=== PATIENT | female | born 1960 | race Caucasian/White ===

== ENCOUNTER 2017-06-19 20:07 | Emergency (ER) | payer MEDICAID, OTHER ==
--- NOTE | 2017-06-19 20:36 | ERPHSYRPT ---
- History of Present Illness Time Seen by Provider: 06/19/17 20:18 Source: patient Exam Limitations: no limitations Patient Subjective Stated Complaint: pt states on friday night she fell down bleachers and hit the back of her head, rt knee, and rt elbow. Triage Nursing Assessment: pt alert and oriented, asnwers qeustions approp. pt ambulatory with steady gait noted. respirations nonlbored with lungs cta. bilat upper and lower ext strength wnl. pupils equal and reactive. Physician History: SIX DAYS AGO PT FELL DOWN 3 BLEACHERS WITH RESULTANT PAIN AND BRUISING OF THE RIGHT ARM, RIGHT ELBOW AND RIGHT KNEE WITH TENDERNESS OF THE BACK OF THE HEAD. PT ALSO C/O DIZZINESS 6 DAYS AGO ONLY AND NAUSEA FOR THE PAST 3 WEEKS. PT DENIES TINGLING/NUMBNESS, WEAKNESS, CHEST PAIN, SHORTNESS OF AIR, ABDOMINAL PAIN. Allergies/Adverse Reactions: codeine Allergy (Verified 06/19/17 20:26) Penicillins Allergy (Verified 06/19/17 20:27) sulfamethoxazole [From Bactrim] Allergy (Verified 06/19/17 20:26) trimethoprim [From Bactrim] Allergy (Verified 06/19/17 20:26) Hx Tetanus, Diphtheria Vaccination/Date Given: Yes Hx Influenza Vaccination/Date Given: No Hx Pneumococcal Vaccination/Date Given: No Immunizations Up to Date: Yes - Review of Systems Respiratory: No Dyspnea Cardiac: No Chest Pain Abdominal/Gastrointestinal: Nausea, No Abdominal Pain, No Vomiting Musculoskeletal: Other (PAIN AND BRUISING OF THE RIGHT ARM, ELBOW AND KNEE.) Neurological: Dizziness, Other (OCCIPITAL TENDERNESS SINCE FALL 6 DAYS AGO.) All Other Systems: Reviewed and Negative - Past Medical History ENT History: Other Endocrine Medical History: Diabetes Type II Musculoskeletal History: Arthritis Other Medical History: hx of detatched retina - Past Surgical History Past Surgical History: Yes Gastrointestinal: Cholecystectomy Female Surgical History: Hysterectomy, Tubal Ligation - Social History Smoking Status: Never smoker Exposure to second hand smoke: No Drug Use: none Patient Lives Alone: No - Nursing Vital Signs Nursing Vital Signs: Initial Vital Signs Temperature 97.6 F 06/19/17 20:15 Pulse Rate 87 06/19/17 20:15 Respiratory Rate 18 06/19/17 20:15 Blood Pressure 121/80 06/19/17 20:15 O2 Sat by Pulse Oximetry 99 06/19/17 20:15 Pain Scale Pain Intensity 6 - Physical Exam General Appearance: alert Eye Exam: PERRL/EOMI Ears, Nose, Throat Exam: TMs normal, pharynx normal, moist mucous membranes Neck Exam: normal inspection Respiratory Exam: lungs clear, airway intact Cardiovascular Exam: normal heart sounds Gastrointestinal/Abdomen Exam: soft, normal bowel sounds Back Exam: No vertebral tenderness Extremity Exam: other (MILD BRUISING AND TENDERNESS OF THE RIGHT KNEE, RIGHT ELBOW AND EXTENSOR ASPECT OF THE DISTAL RIGHT ARM.) Neurologic Exam: alert, cooperative, normal mood/affect, sensation nml, No motor deficits, No motor weakness Skin Exam: other (MILD TENDERNESS AT THE BASE OF THE OCCIPUT WITHOUT ERYTHEMA OR EDEMA.) SpO2 Interpretation: normal SpO2: 99 Oxygen Delivery: Room Air - Radiology Exams Right Elbow X-ray Interpretation: Interpreted by me, No Fracture Right Humerus X-ray Interpretation: Interpreted by me, No Fracture Right Knee X-ray Interpretation: Interpreted by me, No Fracture - CT Exams Head CT Interpretation: Discussed w/radiologist (NORMAL) Cervical Spine CT Interpretation: Discussed w/radiologist (C5-C6 DDD O/W NEGATIVE) Ordered Tests: Active Orders 24 hr Category Date Time Status Kevin Bandage Application -[facility] STAT Care 06/19/17 22:34 Active CERVICAL SPINE WO CONTRAST [CT] Stat Exams 06/19/17 20:56 Taken ELBOW (MINIMUM 3 VIEWS) Stat Exams 06/19/17 21:22 Taken HEAD WITHOUT CONTRAST [CT] Stat Exams 06/19/17 20:34 Taken HUMERUS Stat Exams 06/19/17 20:34 Taken KNEE (3 VIEWS) Stat Exams 06/19/17 20:34 Taken AMYLASE Stat Lab 06/19/17 20:49 Completed CBC W DIFF Stat Lab 06/19/17 20:49 Completed CMP Stat Lab 06/19/17 20:49 Completed LIPASE Stat Lab 06/19/17 20:49 Completed MAGNESIUM Stat Lab 06/19/17 20:49 Completed Lab/Rad Data: Laboratory Result Diagrams 06/19/17 20:49 06/19/17 20:49 Laboratory Results 06/19/17 06/19/17 Range/Units 20:49 20:49 WBC 7.0 (4.0-10.5) K/mm3 RBC 4.87 (4.1-5.4) M/mm3 Hgb 14.0 (12.0-16.0) gm/dl Hct 41.8 (35-47) % MCV 85.8 (78-100) fl MCH 28.7 (26-32) pg MCHC 33.5 (32-36) g/dl RDW 12.8 (11.5-14.0) % Plt Count 214 (150-450) K/mm3 MPV 10.5 H (6-9.5) fl Gran % 43.3 (36.0-66.0) % Lymphocytes % 49.5 H (24.0-44.0) % Monocytes % 5.6 (0.0-12.0) % Eosinophils % 1.3 (0.00-5.0) % Basophils % 0.3 (0.0-0.4) % Basophils # 0.02 (0-0.4) Sodium 139 (136-145) mEq/L Potassium 3.5 (3.5-5.1) mEq/L Chloride 108 H (98-107) mEq/L Carbon Dioxide 23.1 (21-32) mEq/L Anion Gap 11.8 (5-15) MEQ/L BUN 14 (9-20) mg/dL Creatinine 0.76 (0.55-1.30) mg/dl Estimated GFR > 60 ML/MIN Glucose 183 H (70-110) MG/DL Calcium 8.9 (8.5-10.1) mg/dL Magnesium 1.9 (1.8-2.4) mg/dL Total Bilirubin 0.40 (0.2-1.0) mg/dL AST 11 L (15-37) U/L ALT 18 (12-78) U/L Alkaline Phosphatase 59 (46-116) U/L Serum Total Protein 7.0 (6.4-8.2) gm/dL Albumin 3.9 (3.4-5.0) g/dL Amylase 40 (25-115) U/L Lipase 154 (73-393) U/L - Departure Time of Disposition: 22:44 Departure Disposition: Home Clinical Impression: FALL, HEAD CONTUSION, RIGHT KNEE CONTUSION, RIGHT ELBOW/ARM CONTUSION Condition: Stable Critical Care Time: No Referrals: DOCTOR,NO FAMILY [Primary Care Provider] - Instructions: Closed Head Injury (DC), Contusion (DC) Additional Instructions: FOLLOW UP WITH PRIVATE DOCTOR TOMORROW. ELEVATE RIGHT KNEE ABOVE HEART LEVEL FOR 24 HOURS. WEAR KEVIN WRAP TO RIGHT KNEE FOR THE NEXT 4 DAYS. Prescriptions: Naproxen [Naprosyn] 500 mg PO [id number] PRN #20 tablet PRN Reason: Pain
[2017-06-19 20:51] LABS: BASOPHIL % 0.3 % (0.0-0.4); Basophil (Absolute #) 0.02 (0-0.4); Eosinophil % 1.3 % (0.00-5.0); Eosinophil (Absolute #) 0.09 (0-0.5); Granulocyte Absolute (ANC) 3.03 (1.4-6.9); Granulocytes % 43.3 % (36.0-66.0); Hematocrit 41.8 % (35-47); Lymphocyte (Absolute #) 3.46 (1.0-4.6); Lymphocytes % 49.5 % (24.0-44.0); Mean Cell Volume 85.8 fl (78-100); Mean Corpuscular Hemoglobin 28.7 pg (26-32); Mean Corpuscular Hgb Concent. 33.5 g/dl (32-36); Mean Platelet Volume 10.5 fl (6-9.5); Monocyte (Absolute #) 0.39 (0.0-1.3); Monocytes % 5.6 % (0.0-12.0); Platelet Count 214 K/mm3 (150-450); Red Blood Count 4.87 M/mm3 (4.1-5.4); Red Cell Distribution Width 12.8 % (11.5-14.0)
[2017-06-19 21:15] LABS: ALBUMIN 3.9 g/dL (3.4-5.0); ALKALINE PHOSPHATASE 59 U/L (46-116); AMYLASE 40 U/L (25-115); ANION GAP 11.8 MEQ/L (5-15); BLOOD UREA NITROGEN 14 mg/dL (9-20); CHLORIDE 108 mEq/L (98-107); Calcium 8.9 mg/dL (8.5-10.1); Carbon Dioxide 23.1 mEq/L (21-32); Creatinine 1 0.76 mg/dl (0.55-1.30); EST GLOMERULAR FILTRATION RATE > 60 ML/MIN; Glucose 183 MG/DL (70-110); LIPASE 154 U/L (73-393); MAGNESIUM 1.9 mg/dL (1.8-2.4); Potassium 3.5 mEq/L (3.5-5.1); SGOT/AST 11 U/L (15-37); SGPT/ALT 18 U/L (12-78); SODIUM 139 mEq/L (136-145)
[2017-06-19 21:24] VITALS: BP 113/72; PULSE 84
[2017-06-19 22:13] VITALS: O2SAT 99
--- NOTE | 2017-06-20 08:38 | XRAY ---
Indication: Posterior head pain following fall one week ago. Multiple contiguous axial images obtained through the head without contrast. Comparison: None Normal appearing brain parenchyma, ventricles, and bony calvarium. Visualized paranasal sinuses and mastoid air cells are clear. Impression: Normal CT head without contrast exam. CT DI 59.47
--- NOTE | 2017-06-20 08:42 | XRAY ---
Indication: Neck pain following fall one week ago. Multiple contiguous axial images obtained through the cervical spine. Sagittal and coronal reformatted images obtained. Comparison: None Axial images negative for acute fracture, suspicious bony lesions, or spinal canal stenosis. Minimal C5-C6/C7-T1 degenerative endplate spurring and mild multilevel bilateral degenerative facet arthropathy. Sagittal and coronal reformatted images demonstrates normal alignment with minimal C5-C6 disc space narrowing. No acute compression fracture, subluxation, or jumped facet. Normal appearing craniocervical junction. Visualized noncontrasted soft tissues including lung apices are unremarkable. CT head reported separately. Impression: 1. Negative acute fracture/subluxation. 2. Mild degenerative changes. CT DI 110.04
--- NOTE | 2017-06-20 08:46 | XRAY ---
Indication: Pain following fall one week ago. Comparison: None 3 views of the right knee demonstrates mild/moderate tricompartmental degenerative changes greatest involving the medial compartment. Posterior fabella. No other bony, articular, or soft tissue abnormalities.
--- NOTE | 2017-06-20 08:46 | XRAY ---
Indication: Pain following fall one week ago. Comparison: None 3 views of the right elbow demonstrates tiny medial/lateral epicondyle spurring. No other bony, articular, or soft tissue abnormalities.
--- NOTE | 2017-06-20 08:48 | XRAY ---
Indication: Pain following fall. Comparison: None 2 views of the right humerus demonstrates moderate AC degenerative arthropathy and subcapital spurring. No other bony, articular, or soft tissue abnormalities. Elbow reported separately.
== END 2017-06-19 22:50 | disposition home or self-care (01) ==
LOC: ED 20:07
DX: S00.93XA Contusion of unspecified part of head, initial encounter (principal); S80.01XA Contusion of right knee, initial encounter; S50.01XA Contusion of right elbow, initial encounter; W10.8XXA Fall (on) (from) other stairs and steps, initial encounter
CPT/HCPCS: 36415; 70450; 72125; 73060; 73080; 73562; 80053; 82150; 83690; 83735; 85025; 99284

== ENCOUNTER 2017-09-07 09:00 | Emergency (ER) | payer OTHER ==
--- NOTE | 2017-09-07 09:36 | ERPHSYRPT ---
- History of Present Illness Time Seen by Provider: 09/07/17 09:17 Source: patient Exam Limitations: no limitations Physician History: Pt is c/o left sided knee pain for 2 days, denies any injury, no fall, direct or indirect trauma. She had similar problems with her right knee in the past, but denies major trauma, surgery, swelling, other issues. She is nonsmoker, denies serious medical problems except Diabetes and nonspecified arthritis. Method of Injury: unknown Occurred: days ago (2) Quality: constant Severity of Pain-Max: moderate Severity of Pain-Current: mild Lower Extremities Pain: knee: left Modifying Factors: Improves With: movement Associated Symptoms: none Allergies/Adverse Reactions: codeine Allergy (Verified 09/07/17 09:24) Penicillins Allergy (Verified 09/07/17 09:24) sulfamethoxazole [From Bactrim] Allergy (Verified 09/07/17 09:24) trimethoprim [From Bactrim] Allergy (Verified 09/07/17 09:24) Home Medications: Alogliptin Benzoate [Alogliptin] 5 mg PO DAILY 09/07/17 [History] Canagliflozin [Invokana] 300 mg PO DAILY 09/07/17 [History] Hx Tetanus, Diphtheria Vaccination/Date Given: Yes Hx Influenza Vaccination/Date Given: No Hx Pneumococcal Vaccination/Date Given: No - Review of Systems Constitutional: No Symptoms Musculoskeletal: Other (left knee pain) All Other Systems: Reviewed and Negative - Past Medical History ENT History: Other Endocrine Medical History: Diabetes Type II Musculoskeletal History: Arthritis Other Medical History: hx of detatched retina - Past Surgical History Past Surgical History: Yes Gastrointestinal: Cholecystectomy Female Surgical History: Hysterectomy, Tubal Ligation - Social History Smoking Status: Never smoker Exposure to second hand smoke: No Drug Use: none Patient Lives Alone: No - Nursing Vital Signs Nursing Vital Signs: Initial Vital Signs Temperature 97.8 F 09/07/17 09:19 Pulse Rate 89 09/07/17 09:19 Respiratory Rate 16 09/07/17 09:19 Blood Pressure 116/74 09/07/17 09:19 O2 Sat by Pulse Oximetry 99 09/07/17 09:19 Pain Scale Pain Intensity [Left Knee] 4 Pain Intensity 5 - Physical Exam General Appearance: no apparent distress Eyes, Ears, Nose, Throat Exam: normal ENT inspection Neck Exam: normal inspection, non-tender Cardiovascular/Respiratory Exam: chest non-tender, normal breath sounds, regular rate/rhythm, heart sounds normal Gastrointestinal/Abdominal Exam: non-tender Back Exam: normal inspection Knees Exam: left knee: normal inspection, normal range of motion, no evidence of injury, pain (in the fibular area, no swelling, discoloration, no effusion, laxity or other abnormal findings. Good distal pulses.) Ankle Exam: left ankle: normal inspection Neuro/Tendon Exam: normal sensation, normal motor functions Mental Status Exam: alert, oriented x 3 Skin Exam: normal color, warm, dry, No rash SpO2 Interpretation: normal Oxygen Delivery: Room Air - Course Nursing assessment & vital signs reviewed: Yes - Radiology Exams Knee X-ray Interpretation: Interpreted by me, Negative Ordered Tests: Active Orders 24 hr Category Date Time Status KNEE (3 VIEWS) Stat Exams 09/07/17 10:25 Taken - Progress Progress: unchanged Progress Note: 09/07/17 10:30 I discussed the X ray findings with this patient, instructed to rest x 2-3 days , wear VALERIE band , when walking, and follow up with her physician next week. She agreed, will return if any changes, severe pain, swelling, discoloration or numbness of the leg, foot. 09/07/17 10:33 She was given Ultram 50 mg PO Q6h PRN for pain #10 tablets. - Departure Time of Disposition: 10:32 Departure Disposition: Home Clinical Impression: Knee pain, left Qualifiers: Chronicity: acute Qualified Code(s): M25.562 - Pain in left knee Condition: Stable Critical Care Time: No Referrals: SLOANE JACKSON MOTHER TESTER [Primary Care Provider] - Additional Instructions: Rest x 2-3 days, use VALERIE bands, when walking, return if severe pain, swelling, discoloration or numbness coldness of the leg, or foot! Follow up with your physician next week!
[2017-09-07 10:07] VITALS: BP 100/82; PULSE 85; O2SAT 98
--- NOTE | 2017-09-07 19:40 | XRAY ---
Indication: Left knee pain. No known injury. Comparison: None 3 views of the left knee demonstrates mild medial degenerative joint space narrowing/spurring and 10 mm well-circumscribed ossification in the femoral notch either degenerative versus old injury. No other bony, articular, or soft tissue abnormalities.
== END 2017-09-07 10:54 | disposition home or self-care (01) ==
LOC: ED 09:00
DX: M25.562 Pain in left knee (principal)
CPT/HCPCS: 73562; 99283

== ENCOUNTER 2018-06-21 06:23 | Emergency (ER) | payer OTHER ==
[2018-06-21] MEDS ORDERED: Sodium Chloride 0.9% 1000 ML 1,000 ML IV SCH (07:15)
[2018-06-21] MEDS ORDERED: TORAdol 30 mg Injection IV ONE (07:17)
--- NOTE | 2018-06-21 07:24 | ERPHSYRPT ---
- History of Present Illness Time Seen by Provider: 06/21/18 07:10 Historian: patient Exam Limitations: clinical condition Patient Subjective Stated Complaint: pt reports right shoulder pain x 2 weeks that radiates under her right arm to the axilla region. pt states it will wake her from sleep. states the pain is sharp at times, states at this time it is dull. pt reports moving 2 weeks ago lifting heavy boxes and also getting her arm caught in her bath tub recently. pt reports hx of arthritis to the shoulder as well. Triage Nursing Assessment: pt is aox3, pupils perrl, pt appears in no distress, afebrile, resps easy and non labored, radial pulses strong and equal, abd soft non tender, pt skin pink warm dry. no obvious injury or deformity noted. pt ROM intact. pt sensation intact. cap refill < 3 seconds. Physician History: PATIENT COMPLAINS OF SHARP DULL ACHING PAIN OVER HIS LEFT SHOULDER BLADE X 2 WEEKS PERSISTENT, PAIN IS WORSE UPON INSPIRATION, RATES PAIN SCALE 7/10, DENIES COUGH, DYSPNEA, DIAPHORESIS, PALPITATIONS, AND RADIATION OF PAIN TO NECK, JAW OR ARMS. Timing/Duration: week(s) Activities at Onset: none Quality: aching, sharpness Location: back Chest Pain Radiation: no radiation Severity of Pain-Max: moderate Severity of Pain-Current: moderate Modifying Factors: Improves With: change in position ( MOTION OF LEFT ARM) Prior Chest Pain/Cardiac Workup: no prior chest pain Nitro Today/Relief: no nitro taken today Aspirin Treatment Today: no aspirin today Allergies/Adverse Reactions: codeine Allergy (Verified 09/07/17 09:24) Penicillins Allergy (Verified 09/07/17 09:24) sulfamethoxazole [From Bactrim] Allergy (Verified 09/07/17 09:24) trimethoprim [From Bactrim] Allergy (Verified 09/07/17 09:24) Home Medications: Alogliptin Benzoate [Alogliptin] 5 mg PO DAILY 09/07/17 [History] Canagliflozin [Invokana] 300 mg PO DAILY 09/07/17 [History] Hx Tetanus, Diphtheria Vaccination/Date Given: Yes Hx Influenza Vaccination/Date Given: No Hx Pneumococcal Vaccination/Date Given: No Immunizations Up to Date: Yes - Review of Systems Constitutional: No Fever, No Chills Eyes: No Symptoms Ears, Nose, & Throat: No Symptoms Respiratory: No Symptoms, No Cough, No Dyspnea Cardiac: Chest Pain, No Edema, No Syncope Abdominal/Gastrointestinal: No Symptoms, No Abdominal Pain, No Nausea, No Vomiting, No Diarrhea Genitourinary Symptoms: No Symptoms, No Dysuria Musculoskeletal: No Back Pain, No Neck Pain Skin: No Rash Neurological: No Dizziness, No Focal Weakness, No Sensory Changes Psychological: No Symptoms Endocrine: No Symptoms All Other Systems: Reviewed and Negative - Past Medical History Pertinent Past Medical History: Yes ENT History: Other Endocrine Medical History: Diabetes Type II Musculoskeletal History: Arthritis Other Medical History: hx of detatched retina - Past Surgical History Past Surgical History: Yes Gastrointestinal: Cholecystectomy Female Surgical History: Hysterectomy, Tubal Ligation - Social History Smoking Status: Never smoker Exposure to second hand smoke: No Drug Use: none Patient Lives Alone: No - Female History Hx Now: No - Nursing Vital Signs Nursing Vital Signs: Initial Vital Signs Temperature 97.1 F 06/21/18 06:50 Pulse Rate 77 06/21/18 06:50 Respiratory Rate 20 06/21/18 06:50 Blood Pressure 118/78 06/21/18 06:50 O2 Sat by Pulse Oximetry 97 06/21/18 06:50 Pain Scale Pain Intensity 6 - Physical Exam General Appearance: no apparent distress, alert Eye Exam: PERRL/EOMI, eyes nml inspection Ears, Nose, Throat Exam: normal ENT inspection, moist mucous membranes Neck Exam: normal inspection, non-tender, supple, full range of motion Respiratory Exam: normal breath sounds, chest tenderness (TENDERNESS ADJACENT TO MEDIAL BORDER OF LEFT SCAPULA), lungs clear, No respiratory distress Cardiovascular Exam: regular rate/rhythm, normal heart sounds Gastrointestinal/Abdomen Exam: soft, normal bowel sounds, No tenderness, No mass Back Exam: normal inspection, other (THERE IS NO SPINAL OR PARASPINAL THORACIC OR LUMBAR TENDERNESS), No CVA tenderness, No vertebral tenderness Extremity Exam: normal inspection, normal range of motion Neurologic Exam: alert, oriented x 3, cooperative, normal mood/affect, sensation nml, No motor deficits Skin Exam: normal color, warm, dry SpO2: 97 - Course EKG Interpreted by Me: RATE, Sinus Rhythm, NORMAL AXIS - Radiology Exams Chest X-ray Interpretation: Interpreted by me, Negative Ordered Tests: Active Orders 24 hr Category Date Time Status Scrub Wheel Operator STAT Care 06/21/18 07:16 Active EKG-ER Only STAT Care 06/21/18 07:15 Active CHEST 1 VIEW (PORTABLE) Stat Exams 06/21/18 07:16 Taken CBC W DIFF Stat Lab 06/21/18 07:40 Completed CMP Stat Lab 06/21/18 07:40 Completed D-DIMER QUANTITATION Stat Lab 06/21/18 07:40 Completed PROTIME WITH INR Stat Lab 06/21/18 07:40 Completed TROPONIN Q3H Lab 06/21/18 07:40 Completed TROPONIN Q3H Lab 06/21/18 10:30 Ordered TROPONIN Q3H Lab 06/21/18 13:30 Ordered TROPONIN Q3H Lab 06/21/18 16:30 Ordered TROPONIN Q3H Lab 06/21/18 19:30 Ordered Medication Summary Generic Name Dose Route Start Last Admin Trade Name Freq PRN Reason Stop Dose Admin Sodium Chloride 1,000 mls @ 50 mls/hr 06/21/18 07:15 06/21/18 07:42 Sodium Chloride 0.9% 1000 Ml IV 07/21/18 07:14 50 mls/hr .Q20H CHANDA Administration Discontinued Medications Generic Name Dose Route Start Last Admin Trade Name Freq PRN Reason Stop Dose Admin Ketorolac Tromethamine 30 mg 06/21/18 07:17 06/21/18 07:42 Toradol 30 Mg Injection IV 06/21/18 07:18 30 mg STAT ONE Administration Ketorolac Tromethamine Confirm 06/21/18 07:41 Toradol 30 Mg Injection Administered 06/21/18 07:42 Dose 30 mg .ROUTE .STFedBid-MED ONE Lab/Rad Data: Laboratory Result Diagrams 06/21/18 07:40 06/21/18 07:40 Laboratory Results 06/21/18 06/21/18 06/21/18 Range/Units 07:40 07:40 07:40 WBC (4.0-10.5) K/mm3 RBC (4.1-5.4) M/mm3 Hgb (12.0-16.0) gm/dl Hct (35-47) % MCV (78-100) fl MCH (26-32) pg MCHC (32-36) g/dl RDW (11.5-14.0) % Plt Count (150-450) K/mm3 MPV (6-9.5) fl Gran % (36.0-66.0) % Eos # (Auto) (0-0.5) Absolute Lymphs (auto) (1.0-4.6) Absolute Monos (auto) (0.0-1.3) Lymphocytes % (24.0-44.0) % Monocytes % (0.0-12.0) % Eosinophils % (0.00-5.0) % Basophils % (0.0-0.4) % Absolute Granulocytes (1.4-6.9) Basophils # (0-0.4) PT 11.5 (9.95-12.35) SECONDS INR 0.99 (0.8-3.0) D-Dimer 357 (215-500) ng/mL Sodium 141 (137-145) mmol/L Potassium 3.8 (3.5-5.1) mmol/L Chloride 109 H (98-107) mmol/L Carbon Dioxide 23 (22-30) mmol/L Anion Gap 12.4 (5-15) MEQ/L BUN 13 (7-17) mg/dL Creatinine 0.51 L (0.52-1.04) mg/dL Estimated GFR > 60.0 ML/MIN Glucose 214 H (74-106) mg/dL Calcium 8.7 (8.4-10.2) mg/dL Total Bilirubin 0.90 (0.2-1.3) mg/dL AST 13 L (14-36) U/L ALT 15 (0-35) U/L Alkaline Phosphatase 57 (38-126) U/L Troponin I < 0.012 (0.000-0.034) ng/mL Serum Total Protein 6.6 (6.3-8.2) g/dL Albumin 3.8 (3.5-5.0) g/dL 06/21/18 Range/Units 07:40 WBC 5.3 (4.0-10.5) K/mm3 RBC 4.53 (4.1-5.4) M/mm3 Hgb 13.6 (12.0-16.0) gm/dl Hct 40.1 (35-47) % MCV 88.5 (78-100) fl MCH 30.0 (26-32) pg MCHC 33.9 (32-36) g/dl RDW 12.5 (11.5-14.0) % Plt Count 181 (150-450) K/mm3 MPV 10.5 H (6-9.5) fl Gran % 38.8 (36.0-66.0) % Eos # (Auto) 0.11 (0-0.5) Absolute Lymphs (auto) 2.75 (1.0-4.6) Absolute Monos (auto) 0.35 (0.0-1.3) Lymphocytes % 51.9 H (24.0-44.0) % Monocytes % 6.6 (0.0-12.0) % Eosinophils % 2.1 (0.00-5.0) % Basophils % 0.6 (0.0-0.4) % Absolute Granulocytes 2.06 (1.4-6.9) Basophils # 0.03 (0-0.4) PT (9.95-12.35) SECONDS INR (0.8-3.0) D-Dimer (215-500) ng/mL Sodium (137-145) mmol/L Potassium (3.5-5.1) mmol/L Chloride (98-107) mmol/L Carbon Dioxide (22-30) mmol/L Anion Gap (5-15) MEQ/L BUN (7-17) mg/dL Creatinine (0.52-1.04) mg/dL Estimated GFR ML/MIN Glucose (74-106) mg/dL Calcium (8.4-10.2) mg/dL Total Bilirubin (0.2-1.3) mg/dL AST (14-36) U/L ALT (0-35) U/L Alkaline Phosphatase (38-126) U/L Troponin I (0.000-0.034) ng/mL Serum Total Protein (6.3-8.2) g/dL Albumin (3.5-5.0) g/dL - Progress Progress: improved Progress Note: 06/21/18 08:27 IV NORMAL SALINE 50ML/HR, TORADOL 30MG IV, PAIN IMPROVED TO 3/10 Counseled pt/family regarding: lab results, diagnosis, need for follow-up, rad results - Departure Time of Disposition: 08:35 Departure Disposition: Home Clinical Impression: Pleurisy Condition: Stable Critical Care Time: No Referrals: SLOANE JACKSON HUMAN CAPITAL MANAGER [Primary Care Provider] - Additional Instructions: TAKE TORADOL 10MG EVERY 6 HOURS FOR PAIN NEEDED AND NORCO 5/325 EVERY 6 HOURS FOR BREAKTHROUGH PAIN DISCOMFORT. FOLLOWUP WITH YOUR PRIMARY CARE PROVIDER IN 1 WEEK. RETURN TO EMERGENCY FOR ONSET OF SHORTNESS OF BREATH, INCREASING PAIN OR FEVER. Prescriptions: Hydrocodone/APAP 5-325 Tab^^^ [[place] 5-325 Tablet^^^] 1 each PO Q6HPRN PRN #8 tablet MDD 4 PRN Reason: Pain Ketorolac Tromethamine [Toradol] 10 mg PO Q6H PRN PRN #20 tablet PRN Reason: Pain
[2018-06-21] MEDS ORDERED: TORAdol 30 mg Injection ONE (07:41)
[2018-06-21] MEDS ORDERED: Sodium Chloride 0.9% 1000 ML 1,000 ML ONE (07:41)
[2018-06-21 07:43] LABS: BASOPHIL % 0.6 % (0.0-0.4); Basophil (Absolute #) 0.03 (0-0.4); Eosinophil % 2.1 % (0.00-5.0); Eosinophil (Absolute #) 0.11 (0-0.5); Granulocyte Absolute (ANC) 2.06 (1.4-6.9); Granulocytes % 38.8 % (36.0-66.0); Hematocrit 40.1 % (35-47); Hemoglobin 13.6 gm/dl (12.0-16.0); Lymphocyte (Absolute #) 2.75 (1.0-4.6); Lymphocytes % 51.9 % (24.0-44.0); Mean Cell Volume 88.5 fl (78-100); Mean Corpuscular Hgb Concent. 33.9 g/dl (32-36); Mean Platelet Volume 10.5 fl (6-9.5); Monocyte (Absolute #) 0.35 (0.0-1.3); Monocytes % 6.6 % (0.0-12.0); Platelet Count 181 K/mm3 (150-450); Red Blood Count 4.53 M/mm3 (4.1-5.4); Red Cell Distribution Width 12.5 % (11.5-14.0); White Blood Count 5.3 K/mm3 (4.0-10.5)
[2018-06-21 08:02] LABS: INR 0.99 (0.8-3.0); PROTIME 11.5 SECONDS (9.95-12.35)
[2018-06-21 08:04] LABS: ALBUMIN 3.8 g/dL (3.5-5.0); ALKALINE PHOSPHATASE 57 U/L (38-126); ANION GAP 12.4 MEQ/L (5-15); BLOOD UREA NITROGEN 13 mg/dL (7-17); CHLORIDE 109 mmol/L (98-107); Calcium 8.7 mg/dL (8.4-10.2); Carbon Dioxide 23 mmol/L (22-30); Creatinine 1 0.51 mg/dL (0.52-1.04); Glucose 214 mg/dL (74-106); Potassium 3.8 mmol/L (3.5-5.1); SGOT/AST 13 U/L (14-36); SGPT/ALT 15 U/L (0-35); SODIUM 141 mmol/L (137-145); Total Protein 6.6 g/dL (6.3-8.2)
[2018-06-21 08:31] VITALS: BP 99/61; PULSE 77
[2018-06-21 08:33] VITALS: O2SAT 97
--- NOTE | 2018-06-21 09:17 | XRAY ---
Indication: Chest and left shoulder pain. Comparison: None Portable chest demonstrates normal heart and lungs. Bony thorax intact with mild osteopenia and degenerative changes.
== END 2018-06-21 08:49 | disposition home or self-care (01) ==
LOC: ED 06:23
DX: R09.1 Pleurisy (principal); M25.511 Pain in right shoulder; M19.90 Unspecified osteoarthritis, unspecified site; E11.9 Type 2 diabetes mellitus without complications; Z79.899 Other long term (current) drug therapy
CPT/HCPCS: 36415; 71045; 80053; 84484; 85025; 85379; 85610; 93005; 93041; 96360; 96374; 99284; J1885

== ENCOUNTER 2019-02-25 10:03 | Observation (INO) | payer SELFPAY ==
--- NOTE | 2019-02-25 10:29 | ERPHSYRPT ---
- History of Present Illness Time Seen by Provider: 02/25/19 10:11 Source: patient, family, old records Exam Limitations: no limitations Patient Subjective Stated Complaint: pt reports dizziness for several days, states her blood sugar has also been elevated. pt reports her syptoms are intermittent. Triage Nursing Assessment: pt is aox3, speech is clear, appropriate, pt up in room with steady gait, afebrile, resps easy and non labored, radial pulses strong and equal, cap refill < 3 seconds, skin pink warm dry. Physician History: PT IS A 58 Y/O DIABETIC FEMALE LAST NORMAL 2100 LAST PM, PRESENTS C/I LLE WEAKNESS, DRAGGING LEFT LOWER EXTREMITY SINCE 0430 AM WHEN SHE GOT UP TO GO TO BATHROOM. FEELS OFF BALANCE BUT NO VERTIGO. FEELS LIGHTHEADED. DIFFUSE THROBBING 2/10 HEADACHE. NO CP/SOB/N/V/FEVER/CHILLS/DYSURIA/HEMATURIA/FALLS/ VISUAL CHANGES/DYSARTHRIA/PALPITATIONS/AMS/PRIOR EPISODES. PT REPORTS ELEVATED BS 300'S FOR SEVERAL DAYS. PMHX: DM PSHX NICCI, PARTIAL HYST MEDS REVIEWED ALL LIST REVIEWED DENIES TOB/ETOH/ILLICITS FHX DM NO CVA Allergies/Adverse Reactions: codeine Allergy (Verified 02/25/19 10:16) Penicillins Allergy (Verified 02/25/19 10:16) sulfamethoxazole [From Bactrim] Allergy (Verified 02/25/19 10:16) trimethoprim [From Bactrim] Allergy (Verified 02/25/19 10:16) Home Medications: Alogliptin Benzoate [Alogliptin] 5 mg PO DAILY 09/07/17 [History] Canagliflozin [Invokana] 300 mg PO DAILY 09/07/17 [History] Hx Tetanus, Diphtheria Vaccination/Date Given: Yes Hx Influenza Vaccination/Date Given: No Hx Pneumococcal Vaccination/Date Given: No Immunizations Up to Date: Yes - Review of Systems Constitutional: No Symptoms, No Fever, No Chills, No Fatigue, No Lethargy, No Malaise, No Night Sweats, No Weakness, No Weight Loss Eyes: No Symptoms, No Discharge, No Eye Pain, No Eye Redness, No Itchy, No Photophobia, No Tearing, No Vision Changes, No Double Vision, No Foreign Body Sensation Ears, Nose, & Throat: No Symptoms, No Ear Pain, No Ear Discharge, No Hearing Changes, No Tinnitus, No Nose Congestion, No Nose Discharge, No Epistaxis, No Mouth Pain, No Mouth Swelling, No Throat Pain, No Throat Swelling, No Hoarse, No Painful Swallowing, No Stridor Respiratory: No Symptoms, No Cough, No Cyanosis, No Dyspnea, No Dyspnea on Exertion (MAL[place]O), No Stridor, No Wheezing Cardiac: No Symptoms, No Chest Pain, No Edema, No Palpitations, No Syncope, No Orthopnea Abdominal/Gastrointestinal: No Symptoms, No Abdominal Pain, No Nausea, No Vomiting, No Diarrhea, No Constipation, No Hematemesis, No Hematochezia, No Melena, No Dysphagia, No Appetite Changes Genitourinary Symptoms: No Symptoms, No Dysuria, No Frequency, No Hematuria, No Hesitancy, No Incontinence, No Urgency, No Urinary Retention, No Flank Pain, No Menorrhagia, No , No Vaginal Bleeding, No Vaginal Discharge Musculoskeletal: No Symptoms, No Arthralgias, No Back Pain, No Neck Pain, No Deformity, No Fall, No Injury, No Joint Redness, No Joint Pain, No Joint Swelling, No Myalgias Skin: No Symptoms, No Cellulitis, No Decubiti, No Induration, No Pruritis, No Rash, No Skin Lesions, No Dryness Neurological: No Symptoms, Dizziness, Focal Weakness, No Gait Changes, No Headache, No Irritability, No Lethargy, No Paralysis, No Parasthesia, No Seizure , No Sensory Changes, No Speech Changes, No Tics, No Tremors, No Vertigo Psychological: No Symptoms, No Alcohol Abuse, No Drug Abuse, No Anxiety, No Depression, No Suicidal Ideations, No Homicidal Ideations, No Emotional Lability , No Hallucinations, No Memory Loss, No Mood Changes Endocrine: No Symptoms, No Polyuria, No Polydipsia, No Hair Changes, No Cold Intolerance, No Excessive Sweating, No Goiter Hematologic/Lymphatic: No Symptoms, No Anemia, No Blood Clots, No Easy Bleeding , No Gum Bleeding, No Easy Bruising, No Adenopathy Immunological/Allergic: No Symptoms All Other Systems: Reviewed and Negative - Past Medical History Pertinent Past Medical History: Yes ENT History: Other Endocrine Medical History: Diabetes Type II Musculoskeletal History: Arthritis Other Medical History: hx of detatched retina - Past Surgical History Past Surgical History: Yes Gastrointestinal: Cholecystectomy Female Surgical History: Hysterectomy, Tubal Ligation - Social History Smoking Status: Never smoker Exposure to second hand smoke: No Drug Use: none Patient Lives Alone: Yes - Nursing Vital Signs Nursing Vital Signs: Initial Vital Signs Pulse Rate 87 02/25/19 10:10 Respiratory Rate 20 02/25/19 10:10 Blood Pressure 114/74 02/25/19 10:10 O2 Sat by Pulse Oximetry 98 02/25/19 10:10 Pain Scale Pain Intensity 0 - Physical Exam General Appearance: no apparent distress, alert Eye Exam: PERRL/EOMI, eyes nml inspection, other (fundi normal deangelo), No scleral icterus, No pale conjunctivae, No photophobia, No EOM palsy/anisocoria Ears, Nose, Throat Exam: normal ENT inspection, TMs normal, pharynx normal, TM abnormal (L), other (uvula midline, floor of mouth soft), No moist mucous membranes, No dry mucous membranes, No TM abnormal (R), No pharyngeal erythema, No tonsillar exudate Neck Exam: normal inspection, non-tender, supple, full range of motion, No meningismus, No mass, No Brudzinski, No Kernig's, No carotid bruit, No JVD, No limited range of motion, No lymphadenopathy, No midline tenderness, No thyromegaly Respiratory Exam: normal breath sounds, lungs clear, airway intact, No chest tenderness, No respiratory distress, No diminished breath sounds, No accessory muscle use, No prolonged expirations, No crackles/rales, No rhonchi, No wheezing , No stridor, No pleural rub Cardiovascular Exam: regular rate/rhythm, normal heart sounds, normal peripheral pulses, capillary refill <2 sec, No murmur, No friction rub, No gallop, No tachycardia, No bradycardia, No irregular, No capillary refill 2-3 sec, No capillary refill >3 sec, No edema, No pulse deficit Gastrointestinal/Abdomen Exam: soft, normal bowel sounds, No tenderness, No distention, No mass, No guarding, No ecchymosis, No pulsatile mass, No rebound, No hernia, No hepatomegaly, No organomegaly, No splenomegaly, No bruit Pelvic Exam: normal external exam Rectal Exam: deferred Back Exam: normal inspection, normal range of motion, other (neg slr deangelo, no sacral anesthesia, dtr 2/4 deangelo patella), No CVA tenderness, No vertebral tenderness, No rash, No decreased range of motion, No muscle spasm, No point tenderness Extremity Exam: normal inspection, normal range of motion, pelvis stable, No amputations, No contusions, No calf tenderness, No deformities, No lacerations, No parasthesia, No paralysis, No inflammation, No joint swelling, No limited range of motion, No pedal edema, No swelling, No tenderness Neurologic Exam: alert, oriented x 3, cooperative, in house cra II-XII nml as tested, normal mood/affect, nml cerebellar function, nml station & gait, sensation nml, No motor deficits, No sensory deficit, No disoriented, No confusion, No agitation, No uncooperative, No intoxicated appearance, No depressed mood/affect , No motor weakness (LLE 4/5), No facial droop, No slurred speech, No aphasia, No dysarthria, No abnormal gait, No abnormal cerebellar tests, No abnormal in house cra II-XII, No EOM palsy Skin Exam: normal color, warm, dry, No rash, No petechiae, No jaundice, No abrasion, No cyanosis, No diaphoresis, No decubitus, No embolic lesions, No ecchymosis, No jaundice, No laceration, No mottled, No pale Lymphatic Exam: No adenopathy SpO2 Interpretation: normal SpO2: 98 O2 Delivery: Room Air - Course Nursing assessment & vital signs reviewed: Yes EKG Interpreted by Me: RATE, Sinus Rhythm, NORMAL AXIS, NORMAL INTERVALS, Other (UNCHANGED FROM PRIOR) Ordered Tests: Active Orders 24 hr Category Date Time Status Practice Director STAT Care 02/25/19 10:12 Active EKG-ER Only STAT Care 02/25/19 10:11 Active IV Insertion STAT Care 02/25/19 10:11 Active Orthostatic Vital Signs STAT Care 02/25/19 10:11 Active CHEST 2 VIEWS (PA AND LAT) Stat Exams 02/25/19 10:11 Completed HEAD WITHOUT CONTRAST [CT] Stat Exams 02/25/19 10:29 Completed CBC W DIFF Stat Lab 02/25/19 10:30 Completed CMP Stat Lab 02/25/19 10:30 Completed TROPONIN Q3H Lab 02/25/19 10:30 Completed TROPONIN Q3H Lab 02/25/19 13:15 Ordered TROPONIN Q3H Lab 02/25/19 16:15 Ordered TROPONIN Q3H Lab 02/25/19 19:15 Ordered TROPONIN Q3H Lab 02/25/19 22:15 Ordered UA W/RFX UR CULTURE Stat Lab 02/25/19 10:15 Completed Transfer Order Routine Transfer 02/25/19 Ordered Medication Summary Generic Name Dose Route Start Last Admin Trade Name Freq PRN Reason Stop Dose Admin Sodium Chloride 1,000 mls @ 999 mls/hr 02/25/19 10:55 02/25/19 11:07 Sodium Chloride 0.9% 1000 Ml IV 02/25/19 11:55 999 mls/hr .Q1H1M STA Administration Discontinued Medications Generic Name Dose Route Start Last Admin Trade Name Freq PRN Reason Stop Dose Admin Sodium Chloride Confirm 02/25/19 11:00 Sodium Chloride 0.9% 1000 Ml Administered 02/25/19 11:01 Dose 1,000 mls @ ud .ROUTE .STK-MED ONE Lab/Rad Data: Laboratory Result Diagrams 02/25/19 10:30 02/25/19 10:30 Laboratory Results 02/25/19 02/25/19 02/25/19 Range/Units 10:30 10:30 10:30 WBC 5.2 (4.0-10.5) K/mm3 RBC 5.19 (4.1-5.4) M/mm3 Hgb 15.9 (12.0-16.0) gm/dl Hct 45.1 (35-47) % MCV 86.9 (78-100) fl MCH 30.6 (26-32) pg MCHC 35.3 (32-36) g/dl RDW 12.6 (11.5-14.0) % Plt Count 214 (150-450) K/mm3 MPV 11.0 H (6-9.5) fl Gran % 48.2 (36.0-66.0) % Eos # (Auto) 0.07 (0-0.5) Absolute Lymphs (auto) 2.34 (1.0-4.6) Absolute Monos (auto) 0.26 (0.0-1.3) Lymphocytes % 45.2 H (24.0-44.0) % Monocytes % 5.0 (0.0-12.0) % Eosinophils % 1.4 (0.00-5.0) % Basophils % 0.2 (0.0-0.4) % Absolute Granulocytes 2.50 (1.4-6.9) Basophils # 0.01 (0-0.4) Sodium 142 (137-145) mmol/L Potassium 4.2 (3.5-5.1) mmol/L Chloride 107 (98-107) mmol/L Carbon Dioxide 22 (22-30) mmol/L Anion Gap 17.3 H (5-15) MEQ/L BUN 16 (7-17) mg/dL Creatinine 0.56 (0.52-1.04) mg/dL Estimated GFR > 60.0 ML/MIN Glucose 258 H (74-106) mg/dL Calcium 9.9 (8.4-10.2) mg/dL Total Bilirubin 0.80 (0.2-1.3) mg/dL AST 20 (14-36) U/L ALT 22 (0-35) U/L Alkaline Phosphatase 54 (38-126) U/L Troponin I < 0.012 (0.000-0.034) ng/mL Serum Total Protein 7.9 (6.3-8.2) g/dL Albumin 4.5 (3.5-5.0) g/dL Urine Color (YELLOW) Urine Appearance (CLEAR) Urine pH (5-6) Ur Specific [place] (1.005-1.025) Urine Protein (Negative) Urine Ketones (NEGATIVE) Urine Blood (0-5) Austyn/ul Urine Nitrite (NEGATIVE) Urine Bilirubin (NEGATIVE) Urine Urobilinogen (0-1) mg/dL Ur Leukocyte Esterase (NEGATIVE) Urine WBC (Auto) (0-5) /HPF Urine RBC (Auto) (0-2) /HPF U Epithel Cells (Auto) (FEW) /HPF Urine Bacteria (Auto) (NEGATIVE) /HPF Urine Mucus (Auto) (NEGATIVE) /HPF Urine Culture Reflexed (NO) Urine Glucose (NEGATIVE) mg/dL 02/25/19 Range/Units 10:15 WBC (4.0-10.5) K/mm3 RBC (4.1-5.4) M/mm3 Hgb (12.0-16.0) gm/dl Hct (35-47) % MCV (78-100) fl MCH (26-32) pg MCHC (32-36) g/dl RDW (11.5-14.0) % Plt Count (150-450) K/mm3 MPV (6-9.5) fl Gran % (36.0-66.0) % Eos # (Auto) (0-0.5) Absolute Lymphs (auto) (1.0-4.6) Absolute Monos (auto) (0.0-1.3) Lymphocytes % (24.0-44.0) % Monocytes % (0.0-12.0) % Eosinophils % (0.00-5.0) % Basophils % (0.0-0.4) % Absolute Granulocytes (1.4-6.9) Basophils # (0-0.4) Sodium (137-145) mmol/L Potassium (3.5-5.1) mmol/L Chloride (98-107) mmol/L Carbon Dioxide (22-30) mmol/L Anion Gap (5-15) MEQ/L BUN (7-17) mg/dL Creatinine (0.52-1.04) mg/dL Estimated GFR ML/MIN Glucose (74-106) mg/dL Calcium (8.4-10.2) mg/dL Total Bilirubin (0.2-1.3) mg/dL AST (14-36) U/L ALT (0-35) U/L Alkaline Phosphatase (38-126) U/L Troponin I (0.000-0.034) ng/mL Serum Total Protein (6.3-8.2) g/dL Albumin (3.5-5.0) g/dL Urine Color STRAW (YELLOW) Urine Appearance CLEAR (CLEAR) Urine pH 5.0 (5-6) Ur Specific [place] 1.036 (1.005-1.025) Urine Protein NEGATIVE (Negative) Urine Ketones NEGATIVE (NEGATIVE) Urine Blood SMALL (0-5) Austyn/ul Urine Nitrite NEGATIVE (NEGATIVE) Urine Bilirubin NEGATIVE (NEGATIVE) Urine Urobilinogen NEGATIVE (0-1) mg/dL Ur Leukocyte Esterase NEGATIVE (NEGATIVE) Urine WBC (Auto) 0-2 (0-5) /HPF Urine RBC (Auto) 0-2 (0-2) /HPF U Epithel Cells (Auto) NONE (FEW) /HPF Urine Bacteria (Auto) RARE (NEGATIVE) /HPF Urine Mucus (Auto) SLIGHT (NEGATIVE) /HPF Urine Culture Reflexed NO (NO) Urine Glucose >=500 (NEGATIVE) mg/dL - Progress Progress: unchanged Progress Note: + orthostatics, mild hyperglycemia. will hydrate. 02/25/19 11:01 02/25/19 11:[address] HEAD NAD CXR NAD TROP AND EKG NEG MILD ABNORMAL GAIT FINDINGS REVIEWED WITH PT ALL QUESTIONS ANSWERED TO HER SATISFACTION I RECOMMEND ADMISSION WITH CONCERN FOR CVA V MS V OTHER. NO BACK PAIN/ INCONTINENCE/PARESTHESHIAS/ DW DR. ALAS ACCEPTS ADMIT CARE TRANSFERRED. Counseled pt/family regarding: drug and/or alcohol abuse, lab results, diagnosis , need for follow-up, rad results, smoking cessation - Departure Departure Disposition: Observation Clinical Impression: Weakness of right lower extremity, Hyperglycemia, Orthostasis Condition: Good Critical Care Time: No Referrals: SLOANE JACKSON, CINDER DUMP CRANE OPERATOR [Primary Care Provider] -
[2019-02-25 10:37] LABS: Appearance CLEAR (CLEAR); Bilirubin NEGATIVE (NEGATIVE); Blood SMALL Ery/ul (0-5); Glucose >=500 mg/dL (NEGATIVE); Ketones NEGATIVE (NEGATIVE); Leukocyte Esterase NEGATIVE (NEGATIVE); Mucus SLIGHT /HPF (NEGATIVE); Nitrite NEGATIVE (NEGATIVE); Protein,Urine Dip NEGATIVE (Negative); Specific Gravity 1.036 (1.005-1.025); Urobilinogen NEGATIVE mg/dL (0-1)
[2019-02-25 10:41] LABS: Bacteria RARE /HPF (NEGATIVE); RBC 0-2 /HPF (0-2); WBC 0-2 /HPF (0-5)
[2019-02-25 10:50] LABS: ALBUMIN 4.5 g/dL (3.5-5.0); ALKALINE PHOSPHATASE 54 U/L (38-126); ANION GAP 17.3 MEQ/L (5-15); BLOOD UREA NITROGEN 16 mg/dL (7-17); CHLORIDE 107 mmol/L (98-107); Calcium 9.9 mg/dL (8.4-10.2); Carbon Dioxide 22 mmol/L (22-30); Creatinine 1 0.56 mg/dL (0.52-1.04); Glucose 258 mg/dL (74-106); Potassium 4.2 mmol/L (3.5-5.1); SGOT/AST 20 U/L (14-36); SGPT/ALT 22 U/L (0-35); SODIUM 142 mmol/L (137-145); Total Protein 7.9 g/dL (6.3-8.2)
[2019-02-25 10:52] LABS: BASOPHIL % 0.2 % (0.0-0.4); Basophil (Absolute #) 0.01 (0-0.4); Eosinophil % 1.4 % (0.00-5.0); Eosinophil (Absolute #) 0.07 (0-0.5); Hematocrit 45.1 % (35-47); Hemoglobin 15.9 gm/dl (12.0-16.0); Lymphocyte (Absolute #) 2.34 (1.0-4.6); Lymphocytes % 45.2 % (24.0-44.0); Mean Cell Volume 86.9 fl (78-100); Mean Corpuscular Hemoglobin 30.6 pg (26-32); Mean Corpuscular Hgb Concent. 35.3 g/dl (32-36); Monocyte (Absolute #) 0.26 (0.0-1.3); Neutrophil % 48.2 % (36.0-66.0); Platelet Count 214 K/mm3 (150-450); Red Blood Count 5.19 M/mm3 (4.1-5.4); Red Cell Distribution Width 12.6 % (11.5-14.0); White Blood Count 5.2 K/mm3 (4.0-10.5)
[2019-02-25] MEDS ORDERED: Sodium Chloride 0.9% 1000 ML 1,000 ML IV STA (10:55)
[2019-02-25] MEDS ORDERED: Sodium Chloride 0.9% 1000 ML 1,000 ML ONE (11:00)
--- NOTE | 2019-02-25 11:18 | XRAY ---
Indication: Dizziness. Comparison: June 21, 2018. PA/lateral chest again demonstrates normal heart and lungs. Bony thorax intact again with mild osteopenia and degenerative changes. Impression: Stable nonacute chest with chronic features.
--- NOTE | 2019-02-25 11:24 | XRAY ---
Indication: Dizziness. Right leg dragging. Multiple contiguous axial images obtained through the head without contrast. Comparison: June 19, 2017. Ventriculosulcal pattern appears symmetric. No acute intracranial hemorrhage, abnormal extra-axial fluid collection, or mass effect. Fourth ventricle is midline without hydrocephalus. Shipman-white matter differentiation preserved. Bony calvarium intact. Visualized paranasal sinuses and mastoid air cells are clear. Impression: Negative CT head without contrast exam. CT DI 69.90
[2019-02-25] MEDS ORDERED: MORPHINE SULFATE 2 MG INJ IV PRN (15:30)
[2019-02-25] MEDS ORDERED: Zofran 4 MG/2 ML VIAL IV PRN (15:31)
[2019-02-25] MEDS ORDERED: ALOGLIPTIN BENZOATE PO PRN (15:37)
--- NOTE | 2019-02-25 15:41 | PCM.HP ---
History of Present Illness - Chief Complaint Chief Complaint: RLE WEAKNESS,TIA Date: 02/25/19 History of Present Illness: is a 58 year old female. Presented to ER with right leg heaviness from the knee down, pt. relates she feels like she is dragging it. First noted about 0430 then felt as if it were worse at 0630. Pt. presented to ER outside of the acute treatment window., Pt. notes also her balance is off as if she is falling to the right. - Review of Systems Constitutional: No Fever, No Chills Eyes: No Symptoms Ears, Nose, & Throat: No Symptoms Respiratory: No Cough, No Short Of Breath Cardiac: No Chest Pain, No Edema, No Syncope Abdominal/Gastrointestinal: No Abdominal Pain, No Nausea, No Vomiting, No Diarrhea Genitourinary Symptoms: No Dysuria Musculoskeletal: Back Pain Skin: No Rash Neurological: Sensory Changes Psychological: No Symptoms Endocrine: No Symptoms Medications & Allergies Home Medications: Home Medication List Alogliptin Benzoate [Alogliptin] 5 mg PO DAILY PRN 09/07/17 [History Confirmed 02/25/19] Canagliflozin [Invokana] 300 mg PO DAILY 09/07/17 [History Confirmed 02/25/19] Multivitamin [Daily Multiple Vitamin] 1 tablet PO DAILY 02/25/19 [History Confirmed 02/25/19] Allergies/Adverse Reactions: Allergies Allergy/AdvReac Type Severity Reaction Status Date / Time codeine Allergy Verified 02/25/19 10:16 Penicillins Allergy Verified 02/25/19 10:16 sulfamethoxazole Allergy Verified 02/25/19 10:16 [From Bactrim] trimethoprim [From Bactrim] Allergy Verified 02/25/19 10:16 - Past Medical History Past Medical History: Yes Neurological History: No Pertinent History ENT History: Other Cardiac History: No Pertinent History Respiratory History: No Pertinent History Endocrine Medical History: Diabetes Type II Musculoskelatal History: Arthritis GI Medical History: No Pertinent History History: Other Pyscho-Social History: No Pertinent History Reproductive Disorders: Fibroids Comment: hx of detatched retina. "leaky kidney" - Female History Are you now?: No (hyster) - Past Surgical History Past Surgical History: Yes Neuro Surgical History: No Pertinent History Cardiac History: No Pertinent History Respiratory Surgery: No Pertinent History GI Surgical History: Cholecystectomy Genitourinary Surgical Hx: No Pertinent History Female Surgical History: Hysterectomy, Tubal Ligation - Social History Smoking Status: Never smoker Exposure to second hand smoke: Yes Alcohol: None Drug Use: none - Physical Exam Vital Signs: Vital Signs - 24 hr Temp Pulse Resp BP Pulse Ox 02/25/19 12:50 97.7 F 78 15 119/70 98 02/25/19 12:36 78 15 119/70 98 02/25/19 11:44 98 02/25/19 11:44 83 18 94/77 97 02/25/19 11:33 80 18 102/76 98 02/25/19 10:10 87 20 114/74 98 General Appearance: no apparent distress, alert Neurologic Exam: alert, oriented x 3, cooperative, normal mood/affect, nml cerebellar function, nml station & gait, sensation nml, No motor deficits Eye Exam: PERRL/EOMI, eyes nml inspection Ears, Nose, Throat Exam: normal ENT inspection, TMs normal, pharynx normal, moist mucous membranes Neck Exam: normal inspection, non-tender, supple, full range of motion Respiratory Exam: normal breath sounds, lungs clear, No respiratory distress Cardiovascular Exam: regular rate/rhythm, normal heart sounds, normal peripheral pulses Gastrointestinal/Abdomen Exam: soft, normal bowel sounds, No tenderness, No mass Pelvic Exam: not done Rectal Exam: deferred Back Exam: vertebral tenderness Extremity Exam: normal inspection, normal range of motion, pelvis stable Results - Labs Lab/Micro Results: Accuchecks Accucheck Value: 236 Lab Results-Last 24 Hours 02/25/19 02/25/19 02/25/19 Range/Units 10:15 10:30 10:30 WBC 5.2 (4.0-10.5) K/mm3 RBC 5.19 (4.1-5.4) M/mm3 Hgb 15.9 (12.0-16.0) gm/dl Hct 45.1 (35-47) % MCV 86.9 (78-100) fl MCH 30.6 (26-32) pg MCHC 35.3 (32-36) g/dl RDW 12.6 (11.5-14.0) % Plt Count 214 (150-450) K/mm3 MPV 11.0 H (6-9.5) fl Gran % 48.2 (36.0-66.0) % Eos # (Auto) 0.07 (0-0.5) Absolute Lymphs (auto) 2.34 (1.0-4.6) Absolute Monos (auto) 0.26 (0.0-1.3) Lymphocytes % 45.2 H (24.0-44.0) % Monocytes % 5.0 (0.0-12.0) % Eosinophils % 1.4 (0.00-5.0) % Basophils % 0.2 (0.0-0.4) % Absolute Granulocytes 2.50 (1.4-6.9) Basophils # 0.01 (0-0.4) Sodium 142 (137-145) mmol/L Potassium 4.2 (3.5-5.1) mmol/L Chloride 107 (98-107) mmol/L Carbon Dioxide 22 (22-30) mmol/L Anion Gap 17.3 H (5-15) MEQ/L BUN 16 (7-17) mg/dL Creatinine 0.56 (0.52-1.04) mg/dL Estimated GFR > 60.0 ML/MIN Glucose 258 H (74-106) mg/dL Calcium 9.9 (8.4-10.2) mg/dL Total Bilirubin 0.80 (0.2-1.3) mg/dL AST 20 (14-36) U/L ALT 22 (0-35) U/L Alkaline Phosphatase 54 (38-126) U/L Troponin I (0.000-0.034) ng/mL Serum Total Protein 7.9 (6.3-8.2) g/dL Albumin 4.5 (3.5-5.0) g/dL Urine Color STRAW (YELLOW) Urine Appearance CLEAR (CLEAR) Urine pH 5.0 (5-6) Ur Specific [place] 1.036 (1.005-1.025) Urine Protein NEGATIVE (Negative) Urine Ketones NEGATIVE (NEGATIVE) Urine Blood SMALL (0-5) Austyn/ul Urine Nitrite NEGATIVE (NEGATIVE) Urine Bilirubin NEGATIVE (NEGATIVE) Urine Urobilinogen NEGATIVE (0-1) mg/dL Ur Leukocyte Esterase NEGATIVE (NEGATIVE) Urine WBC (Auto) 0-2 (0-5) /HPF Urine RBC (Auto) 0-2 (0-2) /HPF U Epithel Cells (Auto) NONE (FEW) /HPF Urine Bacteria (Auto) RARE (NEGATIVE) /HPF Urine Mucus (Auto) SLIGHT (NEGATIVE) /HPF Urine Culture Reflexed NO (NO) Urine Glucose >=500 (NEGATIVE) mg/dL 02/25/19 02/25/19 Range/Units 10:30 13:35 WBC (4.0-10.5) K/mm3 RBC (4.1-5.4) M/mm3 Hgb (12.0-16.0) gm/dl Hct (35-47) % MCV (78-100) fl MCH (26-32) pg MCHC (32-36) g/dl RDW (11.5-14.0) % Plt Count (150-450) K/mm3 MPV (6-9.5) fl Gran % (36.0-66.0) % Eos # (Auto) (0-0.5) Absolute Lymphs (auto) (1.0-4.6) Absolute Monos (auto) (0.0-1.3) Lymphocytes % (24.0-44.0) % Monocytes % (0.0-12.0) % Eosinophils % (0.00-5.0) % Basophils % (0.0-0.4) % Absolute Granulocytes (1.4-6.9) Basophils # (0-0.4) Sodium (137-145) mmol/L Potassium (3.5-5.1) mmol/L Chloride (98-107) mmol/L Carbon Dioxide (22-30) mmol/L Anion Gap (5-15) MEQ/L BUN (7-17) mg/dL Creatinine (0.52-1.04) mg/dL Estimated GFR ML/MIN Glucose (74-106) mg/dL Calcium (8.4-10.2) mg/dL Total Bilirubin (0.2-1.3) mg/dL AST (14-36) U/L ALT (0-35) U/L Alkaline Phosphatase (38-126) U/L Troponin I < 0.012 < 0.012 (0.000-0.034) ng/mL Serum Total Protein (6.3-8.2) g/dL Albumin (3.5-5.0) g/dL Urine Color (YELLOW) Urine Appearance (CLEAR) Urine pH (5-6) Ur Specific [place] (1.005-1.025) Urine Protein (Negative) Urine Ketones (NEGATIVE) Urine Blood (0-5) Austyn/ul Urine Nitrite (NEGATIVE) Urine Bilirubin (NEGATIVE) Urine Urobilinogen (0-1) mg/dL Ur Leukocyte Esterase (NEGATIVE) Urine WBC (Auto) (0-5) /HPF Urine RBC (Auto) (0-2) /HPF U Epithel Cells (Auto) (FEW) /HPF Urine Bacteria (Auto) (NEGATIVE) /HPF Urine Mucus (Auto) (NEGATIVE) /HPF Urine Culture Reflexed (NO) Urine Glucose (NEGATIVE) mg/dL Accuchecks Accucheck Value: 236 - Radiology Impressions Radiology Exams & Impressions: Radiology Procedures Category Date Time Status CHEST 2 VIEWS (PA AND LAT) Stat Exams 02/25/19 10:11 Completed HEAD WITHOUT CONTRAST [CT] Stat Exams 02/25/19 10:29 Completed Assessment/Plan (1) TIA (transient ischemic attack) Current Visit: Yes Status: Acute Assessment & Plan: MRI brain, pt evaluate Code(s): G45.9 - TRANSIENT CEREBRAL ISCHEMIC ATTACK, UNSPECIFIED (2) Weakness of right lower extremity Current Visit: Yes Status: Acute Assessment & Plan: MRI lower back, pt evaluation Code(s): R29.898 - OTH SYMPTOMS AND SIGNS INVOLVING THE MUSCULOSKELETAL SYSTEM
[2019-02-25] MEDS ORDERED: NovoLIN R SQ PRN (16:00)
[2019-02-25] MEDS ORDERED: MEDICATION INTERVENTION MC SCH (16:15)
[2019-02-25] MEDS: Sodium Chloride 0.9% 1000 ML 1,000 ML IV SCH (16:31)
--- NOTE | 2019-02-25 17:06 | XRAY ---
Indication: Leg weakness. TIA. Two-dimensional sonogram and color Doppler imaging of the carotid arteries of the neck performed. Comparison: None Examination of the right carotid circulation demonstrates minimal carotid bulb intimal thickening. No focal arteriosclerotic plaquing, critical stenosis, or obstruction. PSV of the CCA is 63 cm/s. PSV of the ICA is 66 cm/s. ICA/CCA ratio is 1.0. Normal antegrade vertebral artery flow. Examination of the left carotid circulation demonstrates widely patent common carotid, carotid bulb, and internal/external carotid arteries. PSV of the CCA is 73 cm/s. PSV of the ICA is 84 cm/s. ICA/CCA ratio is 1.2. Normal antegrade vertebral artery flow. Impression: Minimal right carotid bulb intimal thickening. Widely patent left carotid circulation. Velocity measurements and ratios are negative for hemodynamically significant flow-limiting stenosis.
[2019-02-26 05:02] LABS: Hematocrit 41.7 % (35-47); Hemoglobin 14.1 gm/dl (12.0-16.0); Mean Cell Volume 89.3 fl (78-100); Mean Corpuscular Hemoglobin 30.2 pg (26-32); Mean Corpuscular Hgb Concent. 33.8 g/dl (32-36); Mean Platelet Volume 11.2 fl (6-9.5); Platelet Count 187 K/mm3 (150-450); Red Blood Count 4.67 M/mm3 (4.1-5.4); Red Cell Distribution Width 12.6 % (11.5-14.0); White Blood Count 5.7 K/mm3 (4.0-10.5)
[2019-02-26 05:15] LABS: BLOOD UREA NITROGEN 14 mg/dL (7-17); CHLORIDE 111 mmol/L (98-107); Calcium 8.7 mg/dL (8.4-10.2); Carbon Dioxide 22 mmol/L (22-30); Glucose 177 mg/dL (74-106); Potassium 4.1 mmol/L (3.5-5.1); SODIUM 142 mmol/L (137-145)
[2019-02-26] MEDS: Sodium Chloride 0.9% 1000 ML 1,000 ML IV SCH (05:24)
[2019-02-26] MEDS ORDERED: MULTIVITAMIN PO SCH (10:00)
[2019-02-26] MEDS ORDERED: Januvia 50 MG PO SCH (10:00)
[2019-02-26] MEDS ORDERED: NON-FORMULARY ITEM (Canagliflozin [Invokana] 300 MG) PO SCH (10:00)
[2019-02-26] MEDS ORDERED: THERAGRAN MULTIVITAMIN PO SCH (10:00)
[2019-02-26] MEDS ORDERED: Valium 5 MG PO PRN (11:04)
[2019-02-26] MEDS ORDERED: Ecotrin 325 MG PO ONE (11:43)
--- NOTE | 2019-02-26 13:02 | XRAY ---
Indication: Dragging left leg while walking. No known injury. Sagittal and axial MRI lumbar spine performed without contrast using T1 and T2 weighted sequences. Comparison: None No prior lumbar exams for counting purposes. 5 lumbar segments will be assumed. Sagittal MRI images demonstrates normal lumbar alignment. Minimal L2-L5 degenerative disc dehydration signal without disc space loss. Subcentimeter L3-L5 vertebral hemangiomas. No acute fracture, subluxation, or abnormal bone marrow signal. Conus medullaris terminates at the L1-L2 level. Sagittal images through the T12-L3 levels are unremarkable. Axial images at the L3-L4-L5 levels demonstrates very minimal annular disc bulge minimally effacing the thecal sac. No disc herniation, spinal canal, or foraminal stenosis. Facets are symmetric with minimal/mild degenerative facet hypertrophy. At the L5-S1 level, there is no disc herniation, spinal canal, or foraminal stenosis. Minimal bilateral degenerative facet hypertrophy. Impression: 1. L3-L5 degenerative disc disease as detailed. 2. Remaining MRI lumbar spine negative for disc herniation or spinal canal stenosis. 3. Incidental small L3-L5 vertebral hemangiomas.
--- NOTE | 2019-02-26 13:10 | XRAY ---
Indication: Dragging left leg. Left-sided weakness. Possible TIA/stroke. Sagittal, coronal, and axial MRI brain performed using T1, T2, FLAIR, diffusion, and ADC sequences. Comparison: None Ventriculosulcal pattern appears symmetric with very minimal periventricular degenerative micro-ischemia bilaterally. Incidental mild prominent Virchow-Juan spaces bilaterally. No acute intracranial hemorrhage, abnormal extra-axial fluid collection, or mass effect. Diffusion images demonstrates 7 x 10 mm focus of restricted signal in the left posterior centrum semiovale favoring acute ischemia. Fourth ventricle is midline without hydrocephalus. 7/8 cranial nerve complex bilaterally symmetric. Normal flow void signal within the major intracerebral circulation. Normal appearing craniocervical junction and sella turcica. Paranasal sinuses are clear. Impression: 1. Tiny focus acute ischemia in the left posterior centrum semi-ovale without acute hemorrhage or mass effect. 2. Minimal degenerative micro-ischemia within normal limits for patient's age.
[2019-02-26 15:51] VITALS: BP 133/75; PULSE 96; O2SAT 98
== END 2019-02-26 16:40 | disposition home or self-care (01) ==
LOC: ED 10:03 → MED SURG 12:25
PROVIDERS: ADMIT Family Medicine; ATTEND Family Medicine
DX: G45.9 Transient cerebral ischemic attack, unspecified (principal); R53.1 Weakness; E11.9 Type 2 diabetes mellitus without complications; Z79.899 Other long term (current) drug therapy
CPT/HCPCS: 36000; 36415; 70450; 70551; 71046; 72148; 80048; 80053; 81001; 82962; 83036; 84484; 85025; 85027; 87086; 93005; 93041; 93268; 93306; 93880; 96360; 97162; 99285; G0378; A9270-GY

== ENCOUNTER 2019-06-16 13:01 | Emergency (ER) | payer MEDICAID ==
[2019-06-16 14:00] LABS: Absolute Neutrophil Ct (ANC) 3.91 (1.4-6.9); BASOPHIL % 0.3 % (0.0-0.4); Basophil (Absolute #) 0.02 (0-0.4); Eosinophil % 1.1 % (0.00-5.0); Eosinophil (Absolute #) 0.07 (0-0.5); Hematocrit 45.2 % (35-47); Hemoglobin 15.8 gm/dl (12.0-16.0); INR 1.1 (0.8-3.0); Lymphocyte (Absolute #) 2.02 (1.0-4.6); Lymphocytes % 31.6 % (24.0-44.0); Mean Cell Volume 88.5 fl (78-100); Mean Corpuscular Hemoglobin 30.9 pg (26-32); Mean Platelet Volume 11.2 fl (7.5-11.0); Monocyte (Absolute #) 0.37 (0.0-1.3); Monocytes % 5.8 % (0.0-12.0); Neutrophil % 61.2 % (36.0-66.0); PROTIME 12.5 SECONDS (9.95-12.35); Platelet Count 202 K/mm3 (150-450); Red Blood Count 5.11 M/mm3 (4.1-5.4); Red Cell Distribution Width 13.1 % (11.5-14.0); White Blood Count 6.4 K/mm3 (4.0-10.5)
[2019-06-16 14:03] LABS: PTT 30.1 SECONDS (25.3-37.0)
--- NOTE | 2019-06-16 14:16 | XRAY ---
Indication: Palpitations. Comparison: February 25, 2019. Portable chest again demonstrates normal heart and lungs. Bony thorax intact again with mild osteopenia and degenerative changes. No new/acute findings.
[2019-06-16 14:36] LABS: ALBUMIN 4.2 g/dL (3.5-5.0); ALKALINE PHOSPHATASE 56 U/L (38-126); ANION GAP 13.6 MEQ/L (5-15); BLOOD UREA NITROGEN 20 mg/dL (7-17); CHLORIDE 105 mmol/L (98-107); Calcium 9.4 mg/dL (8.4-10.2); Carbon Dioxide 26 mmol/L (22-30); Creatinine 1 0.63 mg/dL (0.52-1.04); Glucose 257 mg/dL (74-106); NT PRO BNP 68.8 pg/mL (0-900); Potassium 3.8 mmol/L (3.5-5.1); SGOT/AST 18 U/L (14-36); SGPT/ALT 14 U/L (0-35); SODIUM 140 mmol/L (137-145); Total Protein 7.3 g/dL (6.3-8.2)
[2019-06-16] MEDS ORDERED: Sodium Chloride 0.9% 500 ML 500 ML IV ONE ×2 (15:55→16:13)
[2019-06-16 16:48] LABS: Amphetamine,Urine NEGATIVE (NEGATIVE); Barbiturate,Urine NEGATIVE (NEGATIVE); Benzodiazepine,Urine NEGATIVE (NEGATIVE); Cocaine,Urine NEGATIVE (NEGATIVE); Methadone,Urine NEGATIVE (NEGATIVE); Opiate,Urine NEGATIVE (NEGATIVE); PCP,Urine NEGATIVE (NEGATIVE); THC,Urine NEGATIVE (NEGATIVE)
--- NOTE | 2019-06-16 17:46 | ERPHSYRPT ---
- History of Present Illness Time Seen by Provider: 06/16/19 13:20 Historian: patient Exam Limitations: no limitations Patient Subjective Stated Complaint: Tachycardia Triage Nursing Assessment: Patient ambulated back to ED and transferred self to bed. Patient A+O X3. Patient's skin pink, warm and dry. Patient complains of tachycardia and chest discomfort since constant throbbing 09/25. Patient's lungs clear a/p deangelo. Heart tones audible. No edema noted. Patient states pain comes and goes. Physician History: Patient c/o heart palpations and vague chest pressure. Symptoms occurred prior to arrival. Patient currently asymptomatic. Timing/Duration: today Activities at Onset: none Quality: pressure Location: substernal Chest Pain Radiation: no radiation Severity of Pain-Max: mild Severity of Pain-Current: mild Aspirin Treatment Today: no aspirin today (Patient is o), 325 mg x 1 (Patient on plavis and ASA. She took her medications as scheduled. ) Allergies/Adverse Reactions: codeine Allergy (Verified 06/16/19 13:03) Penicillins Allergy (Verified 06/16/19 13:03) sulfamethoxazole [From Bactrim] Allergy (Verified 06/16/19 13:03) trimethoprim [From Bactrim] Allergy (Verified 06/16/19 13:03) Home Medications: Alogliptin Benzoate [Alogliptin] 5 mg PO DAILY 09/07/17 [History] Canagliflozin [Invokana] 300 mg PO DAILY 09/07/17 [History] Multivitamin [Daily Multiple Vitamin] 1 tablet PO DAILY 02/25/19 [History] Hx Tetanus, Diphtheria Vaccination/Date Given: Yes Hx Influenza Vaccination/Date Given: No Hx Pneumococcal Vaccination/Date Given: No Immunizations Up to Date: Yes - Review of Systems Constitutional: No Fever, No Chills Eyes: No Symptoms Ears, Nose, & Throat: No Symptoms Respiratory: No Cough, No Dyspnea Cardiac: No Chest Pain, No Edema, No Syncope Abdominal/Gastrointestinal: No Abdominal Pain, No Nausea, No Vomiting, No Diarrhea Genitourinary Symptoms: No Dysuria Musculoskeletal: No Back Pain, No Neck Pain Skin: No Rash Neurological: No Dizziness, No Focal Weakness, No Sensory Changes Psychological: No Symptoms Endocrine: No Symptoms All Other Systems: Reviewed and Negative - Past Medical History Pertinent Past Medical History: Yes Neurological History: No Pertinent History ENT History: Other Cardiac History: No Pertinent History Respiratory History: No Pertinent History Endocrine Medical History: Diabetes Type II Musculoskeletal History: Arthritis GI Medical History: No Pertinent History History: Other Psycho-Social History: No Pertinent History Female Reproductive Disorders: Fibroids Other Medical History: hx of detatched retina. "leaky kidney" - Past Surgical History Past Surgical History: Yes Neuro Surgical History: No Pertinent History Cardiac: No Pertinent History Respiratory: No Pertinent History Gastrointestinal: Cholecystectomy Genitourinary: No Pertinent History Female Surgical History: Hysterectomy, Tubal Ligation - Social History Smoking Status: Never smoker Exposure to second hand smoke: Yes Drug Use: none Patient Lives Alone: Yes - Female History Hx Now: No - Nursing Vital Signs Nursing Vital Signs: Initial Vital Signs Temperature 98.1 F 06/16/19 13:03 Pulse Rate 65 06/16/19 13:03 Respiratory Rate 18 06/16/19 13:03 Blood Pressure 123/82 06/16/19 13:03 O2 Sat by Pulse Oximetry 99 06/16/19 13:03 Pain Scale Pain Intensity 0 - Physical Exam General Appearance: no apparent distress, alert Eye Exam: PERRL/EOMI, eyes nml inspection Ears, Nose, Throat Exam: normal ENT inspection, moist mucous membranes Neck Exam: normal inspection, non-tender, supple, full range of motion Respiratory Exam: normal breath sounds, lungs clear, No respiratory distress Cardiovascular Exam: regular rate/rhythm, normal heart sounds Gastrointestinal/Abdomen Exam: soft, No tenderness, No mass Back Exam: normal inspection, No CVA tenderness, No vertebral tenderness Extremity Exam: normal inspection, normal range of motion Neurologic Exam: alert, oriented x 3, cooperative, normal mood/affect, sensation nml, No motor deficits Skin Exam: normal color, warm, dry SpO2 Interpretation: normal SpO2: 97 O2 Delivery: Room Air - Course EKG Interpreted by Me: RATE, NORMAL AXIS, NORMAL INTERVALS Ordered Tests: Active Orders 24 hr Category Date Time Status Rubber Goods Inspector Tester STAT Care 06/16/19 13:50 Active EKG-ER Only STAT Care 06/16/19 13:49 Active IV Insertion STAT Care 06/16/19 13:49 Active Pulse Oximetry (ED) STAT Care 06/16/19 13:49 Active CHEST 1 VIEW (PORTABLE) Stat Exams 06/16/19 13:49 Completed CBC W DIFF Stat Lab 06/16/19 13:49 Completed CMP Stat Lab 06/16/19 13:49 Completed D-DIMER QUANTITATIVE Stat Lab 06/16/19 13:49 Completed NT PRO BNP Stat Lab 06/16/19 13:49 Completed PROTIME WITH INR Stat Lab 06/16/19 13:49 Completed PTT Stat Lab 06/16/19 13:49 Completed TROPONIN Q3H Lab 06/16/19 14:00 Completed TROPONIN Q3H Lab 06/16/19 16:08 Completed TROPONIN Q3H Lab 06/16/19 20:00 Ordered TROPONIN Q3H Lab 06/16/19 23:00 Ordered TROPONIN Q3H Lab 06/17/19 02:00 Ordered Urine Triage Profile Stat Lab 06/16/19 Completed Medication Summary Discontinued Medications Generic Name Dose Route Start Last Admin Trade Name Emanuelq PRN Reason Stop Dose Admin Sodium Chloride 500 mls @ 500 mls/hr 06/16/19 15:55 06/16/19 17:28 Sodium Chloride 0.9% 500 Ml IV 06/16/19 16:54 Infused .Q1H ONE Infusion Sodium Chloride Confirm 06/16/19 16:13 Sodium Chloride 0.9% 500 Ml Administered 06/16/19 16:14 Dose 500 mls @ ud IV .STK-MED ONE Lab/Rad Data: Laboratory Result Diagrams 06/16/19 13:49 06/16/19 13:49 Laboratory Results 06/16/19 06/16/19 06/16/19 Range/Units Unknown 16:08 14:00 WBC (4.0-10.5) K/mm3 RBC (4.1-5.4) M/mm3 Hgb (12.0-16.0) gm/dl Hct (35-47) % MCV (78-100) fl MCH (26-32) pg MCHC (32-36) g/dl RDW (11.5-14.0) % Plt Count (150-450) K/mm3 MPV (7.5-11.0) fl Gran % (36.0-66.0) % Eos # (Auto) (0-0.5) Absolute Lymphs (auto) (1.0-4.6) Absolute Monos (auto) (0.0-1.3) Lymphocytes % (24.0-44.0) % Monocytes % (0.0-12.0) % Eosinophils % (0.00-5.0) % Basophils % (0.0-0.4) % Absolute Granulocytes (1.4-6.9) Basophils # (0-0.4) PT (9.95-12.35) SECONDS INR (0.8-3.0) APTT (25.3-37.0) SECONDS D-Dimer (215-500) ng/mL Sodium (137-145) mmol/L Potassium (3.5-5.1) mmol/L Chloride (98-107) mmol/L Carbon Dioxide (22-30) mmol/L Anion Gap (5-15) MEQ/L BUN (7-17) mg/dL Creatinine (0.52-1.04) mg/dL Estimated GFR ML/MIN Glucose (74-106) mg/dL Calcium (8.4-10.2) mg/dL Total Bilirubin (0.2-1.3) mg/dL AST (14-36) U/L ALT (0-35) U/L Alkaline Phosphatase (38-126) U/L Troponin I < 0.012 < 0.012 (0.000-0.034) ng/mL NT-Pro-B Natriuret Pep (0-900) pg/mL Serum Total Protein (6.3-8.2) g/dL Albumin (3.5-5.0) g/dL Urine Opiates Level NEGATIVE (NEGATIVE) Ur Methadone NEGATIVE (NEGATIVE) Urine Barbiturates NEGATIVE (NEGATIVE) Ur Phencyclidine (PCP) NEGATIVE (NEGATIVE) Urine Amphetamine NEGATIVE (NEGATIVE) U Benzodiazepine Level NEGATIVE (NEGATIVE) Urine Cocaine NEGATIVE (NEGATIVE) Urine Marijuana (THC) NEGATIVE (NEGATIVE) 06/16/19 06/16/19 06/16/19 Range/Units 13:49 13:49 13:49 WBC 6.4 (4.0-10.5) K/mm3 RBC 5.11 (4.1-5.4) M/mm3 Hgb 15.8 (12.0-16.0) gm/dl Hct 45.2 (35-47) % MCV 88.5 (78-100) fl MCH 30.9 (26-32) pg MCHC 35.0 (32-36) g/dl RDW 13.1 (11.5-14.0) % Plt Count 202 (150-450) K/mm3 MPV 11.2 H (7.5-11.0) fl Gran % 61.2 (36.0-66.0) % Eos # (Auto) 0.07 (0-0.5) Absolute Lymphs (auto) 2.02 (1.0-4.6) Absolute Monos (auto) 0.37 (0.0-1.3) Lymphocytes % 31.6 (24.0-44.0) % Monocytes % 5.8 (0.0-12.0) % Eosinophils % 1.1 (0.00-5.0) % Basophils % 0.3 (0.0-0.4) % Absolute Granulocytes 3.91 (1.4-6.9) Basophils # 0.02 (0-0.4) PT 12.5 H (9.95-12.35) SECONDS INR 1.10 (0.8-3.0) APTT 30.1 (25.3-37.0) SECONDS D-Dimer 353 (215-500) ng/mL Sodium 140 (137-145) mmol/L Potassium 3.8 (3.5-5.1) mmol/L Chloride 105 (98-107) mmol/L Carbon Dioxide 26 (22-30) mmol/L Anion Gap 13.6 (5-15) MEQ/L BUN 20 H (7-17) mg/dL Creatinine 0.63 (0.52-1.04) mg/dL Estimated GFR > 60.0 ML/MIN Glucose 257 H (74-106) mg/dL Calcium 9.4 (8.4-10.2) mg/dL Total Bilirubin 0.60 (0.2-1.3) mg/dL AST 18 (14-36) U/L ALT 14 (0-35) U/L Alkaline Phosphatase 56 (38-126) U/L Troponin I (0.000-0.034) ng/mL NT-Pro-B Natriuret Pep 68.8 (0-900) pg/mL Serum Total Protein 7.3 (6.3-8.2) g/dL Albumin 4.2 (3.5-5.0) g/dL Urine Opiates Level (NEGATIVE) Ur Methadone (NEGATIVE) Urine Barbiturates (NEGATIVE) Ur Phencyclidine (PCP) (NEGATIVE) Urine Amphetamine (NEGATIVE) U Benzodiazepine Level (NEGATIVE) Urine Cocaine (NEGATIVE) Urine Marijuana (THC) (NEGATIVE) - Progress Progress: improved Air Movement: fair, good Counseled pt/family regarding: lab results, diagnosis, rad results - Departure Departure Disposition: Home (Patient reassessed. She is asymptomatic. IVF infused. Work up essential WNL. ) Clinical Impression: Dehydration, Heart palpitations, Hyperglycemia Condition: Good Critical Care Time: No Referrals: SLOANE JACKSON, KEY ACCOUNT DIRECTOR [Primary Care Provider] - Additional Instructions: Discharge/Care Plan RUTH RICE was seen on 06/16/19 in the Emergency Room. The patient was counseled regarding Diagnosis,Lab results, Imaging studies, need for follow up and when to return to the Emergency Room. Prescriptions given: Discharge Note I have spoken with the patient and/or caregivers. I have explained the patient' s condition, diagnosis and treatment plan based on the information available to me at this time. I have answered the patient's and/or caregiver's questions and addressed any concerns. The patient and/or caregivers have as good understanding of the patient's diagnosis, condition and treatment plan as can be expected at this point. The vital signs have been stable. The patient's condition is stable and appropriate for discharge from the emergency department. The patient will pursue further outpatient evaluation with the primary care physician or other designated or consulting physician as outlined in the discharge instructions. The patient and/or caregivers are agreeable to this plan of care and follow-up instructions have been explained in detail. The patient and/or caregivers have received these instruction. The patient/and or caregivers are aware that any significant change in condition or worsening of symptoms should prompt an immediate return to this or the closest emergency department or call 911.
[2019-06-16 18:24] VITALS: BP 110/86; PULSE 85; O2SAT 98
== END 2019-06-16 18:21 | disposition home or self-care (01) ==
LOC: ED 13:01
DX: E86.0 Dehydration (principal); R00.2 Palpitations; E11.65 Type 2 diabetes mellitus with hyperglycemia
CPT/HCPCS: 36000; 36415; 71045; 80053; 80307; 83880; 84484; 85025; 85379; 85610; 85730; 93005; 93041; 94760; 96360; 99284

== ENCOUNTER 2023-02-21 08:51 | Emergency (ER) | payer MEDICARE, MEDICAID ==
[2023-02-21 09:12] VITALS: RESP 18; TEMP 97.2
--- NOTE | 2023-02-21 09:20 | ERPHSYRPT ---
- History of Present Illness Time Seen by Provider: 02/21/23 09:10 Source: patient Exam Limitations: no limitations Patient Subjective Stated Complaint: Fall- right arm pain Triage Nursing Assessment: Patient ambulated back to ED and transferred self to bed. Patient A+O X 3. Patient's skin pink, warm and dry. Patient states she was walking up stairs at [employer] when she missed the step and tried to catch herself with her right arm. Pateint complains of pain to right upper/lower arm and hand 11/25. Patient has 2 small skin tears noted to left lower arm. Physician History: This is a 62-year-old white female who was walking up steps of the [employer] when she missed a step and fell onto her right outstretched hand/arm. She did not hit her head. She has no other pain complaints. Patient states that she is on anticoagulation therapy. Patient is diabetic. Patient states her last tetanus shot was approximately 1 year ago per her recollection. Occurred: just prior to arrival Method of Injury: other (Tripped walking up steps) Quality: constant Severity of Pain-Max: mild Severity of Pain-Current: mild (Tomorrow tomorrow) Extremities Pain Location: arm: right, forearm: bilateral (Skin of left forearm shows skin tears), hand: right Modifying Factors: Improves With: movement Associated Symptoms: none Allergies/Adverse Reactions: codeine Allergy (Verified 02/21/23 08:59) Penicillins Allergy (Verified 02/21/23 08:59) sulfamethoxazole [From Bactrim] Allergy (Verified 02/21/23 08:59) trimethoprim [From Bactrim] Allergy (Verified 02/21/23 08:59) Home Medications: Alogliptin Benzoate [Alogliptin] 5 mg PO DAILY 09/07/17 [History] Canagliflozin [Invokana] 300 mg PO DAILY 09/07/17 [History] Multivitamin [Daily Multiple Vitamin] 1 tablet PO DAILY 02/25/19 [History] Hx Tetanus, Diphtheria Vaccination/Date Given: Yes Hx Influenza Vaccination/Date Given: No Hx Pneumococcal Vaccination/Date Given: No Immunizations Up to Date: Yes Travel Risk - International Travel Have you traveled outside of the country in past 3 weeks: No - Coronavirus Screening Are you exhibiting any of the following symptoms?: No Close contact with a COVID-19 positive Pt in past 14-21 Days: No - Vaccine Status Have you recieved a Covid-19 vaccination: Yes 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 - Vaccination Dates Dates if Unknown: na - Review of Systems Constitutional: No Symptoms Eyes: No Symptoms Ears, Nose, & Throat: No Symptoms Respiratory: No Symptoms Cardiac: No Symptoms Abdominal/Gastrointestinal: No Symptoms Genitourinary Symptoms: No Symptoms Musculoskeletal: Fall, Injury Skin: Other (Skin tear left forearm dorsal aspect) Neurological: No Symptoms Psychological: No Symptoms Endocrine: No Symptoms Hematologic/Lymphatic: No Symptoms Immunological/Allergic: No Symptoms All Other Systems: Reviewed and Negative - Past Medical History Pertinent Past Medical History: Yes Neurological History: No Pertinent History ENT History: Other Cardiac History: No Pertinent History Respiratory History: No Pertinent History Endocrine Medical History: Diabetes Type II Musculoskeletal History: Arthritis GI Medical History: No Pertinent History History: Other Psycho-Social History: No Pertinent History Female Reproductive Disorders: Fibroids Other Medical History: hx of detatched retina. "leaky kidney" - Past Surgical History Past Surgical History: Yes Neuro Surgical History: No Pertinent History Cardiac: No Pertinent History Respiratory: No Pertinent History Gastrointestinal: Cholecystectomy Genitourinary: No Pertinent History Musculoskeletal: No Pertinent History Female Surgical History: Hysterectomy, Tubal Ligation - Social History Smoking Status: Never smoker Exposure to second hand smoke: Yes Drug Use: none Patient Lives Alone: No (lives with boyfriend) - Nursing Vital Signs Nursing Vital Signs: Initial Vital Signs Temperature 97.2 F 02/21/23 09:00 Pulse Rate 81 02/21/23 09:00 Respiratory Rate 18 02/21/23 09:00 Blood Pressure 121/75 02/21/23 09:00 O2 Sat by Pulse Oximetry 99 02/21/23 09:00 Pain Scale Pain Intensity 7 - Physical Exam General Appearance: no apparent distress, alert, anxiety Eyes, Ears, Nose, Throat Exam: normal ENT inspection, moist mucous membranes Neck Exam: normal inspection, non-tender, supple, full range of motion Cardiovascular/Respiratory Exam: chest non-tender, no respiratory distress Abdominal Exam: non-tender Back Exam: normal inspection, normal range of motion, No CVA tenderness, No vertebral tenderness Shoulder Exam: normal inspection, non-tender, no evidence of injury, normal ROM Elbow/Forearm Exam: normal inspection, normal ROM, bone tenderness, soft tissue tenderness, No deformity Wrist Exam: normal inspection, non-tender, no evidence of injury, normal ROM Hand Exam: normal inspection, normal ROM, soft tissue tenderness Neuro/Tendon Exam: normal sensation, normal motor functions, normal tendon functions, responds to pain Mental Status Exam: alert, oriented x 3, cooperative Skin Exam: other (2 skin tears left forearm dorsal aspect) SpO2 Interpretation: normal SpO2: 99 O2 Delivery: Room Air - Course Nursing assessment & vital signs reviewed: Yes Ordered Tests: Active Orders 24 hr Category Date Time Status Sling Application STAT Care 02/21/23 09:38 Ordered Wound Care STAT Care 02/21/23 09:38 Ordered FOREARM Stat Exams 02/21/23 08:58 Completed HAND (MINIMUM 3 VIEWS) Stat Exams 02/21/23 08:58 Completed HUMERUS Stat Exams 02/21/23 08:58 Completed - Progress Progress: improved, pain not gone completely, re-examined Progress Note: 02/21/23 09:42 This patient's medical issue is 1 of low complexity. Level complexity the work- up performed is based on review of the patient's past medical history, review of the patient's medication list, review of the patient's drug allergy list, history of present illness and physical finds on examination. The work-up in this patient includes x-ray of the right humerus, right forearm and right hand. Patient also is noted to have 2 skin tears of her left forearm dorsal aspect. The sites will be cleaned with Hibiclens dried and a thin layer of antibiotic ointment and a nonstick bandage will be placed on it. We will place the patient in a right upper extremity sling for comfort sake. Patient is refusing narcotic pain medicine. Patient is going to avoid ibuprofen since she is on blood thinning medicine per her report. We will provide her with 650 mg of Tylenol orally. X-ray of the right humerus shows degenerative changes without acute fracture or dislocation. This study was interpreted by the radiologist and I reviewed the impression. X-ray of the right forearm was interpreted by the radiologist and there is no evidence of any acute fracture or dislocation. I reviewed the impression. X-ray of the right hand was interpreted by the radiologist and I reviewed the impression. There are degenerative changes without evidence of acute fracture or dislocation. Counseled pt/family regarding: diagnosis, need for follow-up, rad results Medical Desision Making - Independent Historian Additional History obtained from: Spouse - Diagnostic Testing Diagnostic test were ordered, analyzed, and reviewed by me: Yes Radiological Interpretation: Reviewed by me, Teleradiologist Report - Risk of complications Minimal Risk: Minimal risk of morbidity - Departure Departure Disposition: Home Clinical Impression: Skin tear, Contusion of right upper extremity Condition: Stable Critical Care Time: No Referrals: SLOANE JACKSON, CHLORINE OPERATOR [Primary Care Provider] - Follow up/PCP as directed Additional Instructions: Keep the skin tear sites clean daily with soap and water and apply antibiotic ointment of choice and cover with a bandage daily. Use Tylenol 650 mg orally 4 times a day for pain control of your right arm. Wear the sling for comfort. Follow-up with your primary care provider or [facility] orthopedic clinic Friday through Friday 8 AM to 10 AM if your pain persists beyond the next 48 hours. It is a walk-in clinic and you do not need to have an appointment.
--- NOTE | 2023-02-21 09:26 | XRAY ---
Indication: Pain following fall. Comparison: None 2 view right forearm demonstrates osteopenia and tiny lateral epicondyle spurring. No other bony, articular, or soft tissue abnormalities.
--- NOTE | 2023-02-21 09:26 | XRAY ---
Indication: Pain following fall. Comparison: None 2 view right humerus demonstrates osteopenia, moderate glenohumeral degenerative arthropathy with medial humeral head bony exostosis, and moderate AC degenerative changes with tiny heterotopic ossification. No other bony, articular, or soft tissue abnormalities.
--- NOTE | 2023-02-21 09:28 | XRAY ---
Indication: Pain following fall. Comparison: None 3 view right hand demonstrates osteopenia, minimal/mild degenerative changes all IP joints, mild degenerative changes 1st metacarpal multangular articulation, and radiocarpal joint space narrowing. No other bony, articular, or soft tissue abnormalities.
[2023-02-21] MEDS ORDERED: TYLENOL 325 MG PO ONE (09:38)
[2023-02-21] MEDS ORDERED: TYLENOL 325 MG ONE (09:49)
[2023-02-21 10:08] VITALS: BP 105/76; PULSE 83; O2SAT 95
== END 2023-02-21 10:06 | disposition home or self-care (01) ==
LOC: ED 08:51
DX: S51.811A Laceration without foreign body of right forearm, initial encounter (principal); S40.021A Contusion of right upper arm, initial encounter; W10.8XXA Fall (on) (from) other stairs and steps, initial encounter; Y92.240 Courthouse as the place of occurrence of the external cause; E11.9 Type 2 diabetes mellitus without complications; Z79.84 Long term (current) use of oral hypoglycemic drugs; Z79.899 Other long term (current) drug therapy
CPT/HCPCS: 73060; 73090; 73130; 99283; A9270-GY